=== PATIENT | male | born 2000 | race Caucasian/White ===

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

== ENCOUNTER 2020-11-22 23:07 | Inpatient (IN) ==
[2020-11-22] MEDS ORDERED: levETIRAcetam 500 MG IVPREMIX 500 MG/100 ML BAG IVPB ONE (23:22)
[2020-11-22] MEDS ORDERED: Lactated Ringers 1000 ml BAG 1,000 ML IV ONE (23:24)
[2020-11-22] MEDS ORDERED: Ondansetron 4 mg VIAL 2 MG/ML 2 ml VIAL IV ONE (23:24)
[2020-11-22 23:59] LABS: Hematocrit 48 % (42-52); Hemoglobin 16.2 g/dL (14.0-18.0); Mean Corpuscular HGB Conc 34 g/dL (31-36); Mean Corpuscular Hemoglobin 32 pg (27-31); Mean Corpuscular Volume 93 fL (80-94); Mean Platelet Volume 9.3 fL (7.4-10.4); Platelet Count 255 10^3/uL (150-450); Red Blood Count 5.14 10^6 /uL (4.18-5.48); Red Cell Distribution Width 13 % (10-15)
[2020-11-23 00:12] LABS: Albumin 4.7 g/dL (3.2-5.2); Calcium 9.3 mg/dL (8.6-10.3); Magnesium 2.6 mg/dL (1.9-2.7); Potassium 3.9 mmol/L (3.5-5.0); Total Bilirubin 0.7 mg/dL (0.2-1.0)
[2020-11-23 00:19] LABS: Albumin/Globulin Ratio 1.8 (1-3); C Reactive Protein 19.04 mg/L (<8.01); EGFR African American 45.7 (>60); EGFR Non-African American 37.8 (>60); Globulin 2.6 g/dL (2-4); Total Protein 7.3 g/dL (6.4-8.9)
[2020-11-23] MEDS ORDERED: Lactated Ringers 1000 ml BAG 1,000 ML IV ONE (00:27)
[2020-11-23 00:31] LABS: ABS Lymphocytes 0.9 10^3/ul (1.0-4.8); ABS Neutrophils 21.1 10^3/ul (1.5-7.7); Lymphocyte % 3.6 %; Nucleated Red Blood Cells % 0.1
[2020-11-23] MEDS ORDERED: Iodixanol (CONTRAST) 320 MG/ML 100 ML SDV IV ONE (00:54)
[2020-11-23 03:55] LABS: Venous Bicarbonate HCO3 20.6 mmol/L (24-28)
[2020-11-23] MEDS ORDERED: Ondansetron 4 mg VIAL 2 MG/ML 2 ml VIAL IV PRN (04:22)
[2020-11-23] MEDS ORDERED: Lactated Ringers 1000 ml BAG 1,000 ML IV SCH (05:00)
[2020-11-23 06:09] LABS: Hematocrit 45 % (42-52); Mean Corpuscular HGB Conc 34 g/dL (31-36); Mean Corpuscular Hemoglobin 31 pg (27-31); Mean Corpuscular Volume 94 fL (80-94); Mean Platelet Volume 9.5 fL (7.4-10.4); Platelet Count 233 10^3/uL (150-450); Red Blood Count 4.78 10^6 /uL (4.18-5.48); Red Cell Distribution Width 13 % (10-15); White Blood Count 19.9 10^3/uL (3.5-10.8)
[2020-11-23 06:13] LABS: ABS Lymphocytes 1.3 10^3/ul (1.0-4.8); ABS Monocytes 2.5 10^3/ul (0-0.8); Lymphocyte % 6.8 %
[2020-11-23 06:22] LABS: Calcium 8.9 mg/dL (8.6-10.3); EGFR African American 40.6 (>60); EGFR Non-African American 33.6 (>60); Magnesium 2.4 mg/dL (1.9-2.7)
[2020-11-23 06:27] LABS: Influenza A Molecular Negative (Negative); Influenza B Molecular Negative (Negative)
[2020-11-23 10:06] LABS: Urine Appearance Clear; Urine Bilirubin Negative (Negative); Urine Blood Negative (Negative); Urine Color Straw; Urine Glucose Negative (Negative); Urine Ketones Negative (Negative); Urine Nitrite Negative (Negative); Urine Protein Negative (Negative); Urine Specific Gravity 1.019 (1.002-1.030); Urine Urobilinogen Negative (Negative)
[2020-11-23 10:48] LABS: Urine Creatinine Concentration 76.4 mg/dL
[2020-11-23] MEDS ORDERED: levETIRAcetam 500 MG IVPREMIX 500 MG/100 ML BAG IV SCH (12:00)
[2020-11-23 16:46] LABS: Calcium 8.9 mg/dL (8.6-10.3); EGFR African American 44.1 (>60); EGFR Non-African American 36.4 (>60); Potassium 3.9 mmol/L (3.5-5.0)
[2020-11-23] MEDS ORDERED: Zonisamide 100 mg CAP (NF) PO SCH ×2 (16:58→21:00)
[2020-11-23 17:15] LABS: Phosphorus 3.2 mg/dL (2.5-5.0)
[2020-11-23] MEDS: NS 0.9% 1000 ml BAG 1,000 ML IV SCH (20:08)
[2020-11-23] MEDS ORDERED: CMCS:Zonisamide 50 mg CAP (NF) PO SCH (21:00)
[2020-11-24] MEDS: NS 0.9% 1000 ml BAG 1,000 ML IV SCH (04:11)
[2020-11-24 09:34] LABS: ABS Lymphocytes 1.2 10^3/ul (1.0-4.8); ABS Monocytes 1.2 10^3/ul (0-0.8); ABS Neutrophils 10.4 10^3/ul (1.5-7.7); Eosinophil % 0.3 %; Hematocrit 42 % (42-52); Lymphocyte % 9.6 %; Mean Corpuscular HGB Conc 34 g/dL (31-36); Mean Corpuscular Hemoglobin 32 pg (27-31); Mean Corpuscular Volume 94 fL (80-94); Mean Platelet Volume 9.3 fL (7.4-10.4); Platelet Count 196 10^3/uL (150-450); Red Blood Count 4.45 10^6 /uL (4.18-5.48); Red Cell Distribution Width 14 % (10-15)
[2020-11-24 09:59] LABS: Calcium 8.7 mg/dL (8.6-10.3); EGFR African American 58.9 (>60); EGFR Non-African American 48.7 (>60)
[2020-11-24 11:57] VITALS: BP 141/76
[2020-11-24] MEDS ORDERED: CMCS:Zonisamide 50 mg CAP (NF) PO SCH (21:00)
== END 2020-11-24 13:16 | disposition home or self-care (01) | DRG 53 ==
LOC: ED 23:07 → EDHOLD 11-23 08:32 → MEDTELE 11-23 19:47
PROVIDERS: ADMIT Internal Medicine; ATTEND Internal Medicine